=== PATIENT | female | born 1975 | race Two or more races ===

== ENCOUNTER 2024-01-09 17:04 | Emergency (ER) | payer OTHER ==
[2024-01-09 17:39] VITALS: BP 104/75; PULSE 65; RESP 16; TEMP 97.5; BMI 22.4
[2024-01-09] MEDS ORDERED: ACETAMINOPHEN INJECTION 100 ML IVPB ONE (18:18)
[2024-01-09 18:29] LABS: HEMATOCRIT 40.7 % (32.4-45.2); HEMOGLOBIN 13.5 G/dL (10.7-15.3); MCH 31.5 pg (25.7-33.7); MCHC 33.2 g/dl (32.0-36.0); MEAN CELL VOLUME 94.8 fl (80-96); MEAN PLT VOLUME 8.9 fl (7.5-11.1); PLATELET COUNT 199.9 10^3/uL (134-434); RBC 4.29 10^6/uL (3.60-5.2); RDW 14.5 % (11.6-15.6); WHITE BLOOD COUNT 4.8 10^3/uL (4.0-10.8)
[2024-01-09] MEDS: ACETAMINOPHEN 1000 MG/100 ML BAG IVPB ONE (18:32)
[2024-01-09] MEDS: SODIUM CHLORIDE 0.9% 1000 ML INFUS.BAG IV ONE (18:32)
[2024-01-09 18:43] LABS: ALBUMIN 4.8 g/dl (3.4-5.0); BILIRUBIN,TOTAL 0.4 mg/dl (0.2-1); CALCIUM 9.8 mg/dl (8.5-10.1); CREATININE 0.8 mg/dl (0.6-1.3)
[2024-01-09 18:47] LABS: POTASSIUM 4.7 mmol/L (3.5-5.1)
[2024-01-09] MEDS ORDERED: cefTRIAXone SODIUM 1 GM VIAL ONE (19:15)
[2024-01-09] MEDS: CEFTRIAXONE 1 GM in DEXTROSE 5%-WATER - 100 ML IVPB ONE (19:22)
[2024-01-09] MEDS ORDERED: KETOROLAC TROMETHAMINE 30 MG/1 ML VIAL ONE (19:27)
[2024-01-09] MEDS: KETOROLAC TROMETHAMINE 30 MG/1 ML VIAL IVPUSH ONE (19:32)
[2024-01-09] MEDS ORDERED: LIDOCAINE 5% TOPICAL PATCH ONE (19:45)
[2024-01-09] MEDS: LIDOCAINE 5% TOPICAL PATCH TP ONE (19:55)
[2024-01-09] MEDS: CYCLOBENZAPRINE HCL 5 MG TABLET PO STA (20:43)
[2024-01-09] MEDS ORDERED: CYCLOBENZAPRINE HCL 5 MG TABLET ONE (20:43)
[2024-01-09] MEDS ORDERED: LIDOCAINE PATCH REMOVAL MC SCH (22:00)
== END 2024-01-09 20:57 | disposition home or self-care (01) ==
LOC: FER 17:04
PROC: 3E03329 Introduction of Other Anti-infective into Peripheral Vein, Percutaneous Approach (ICD-10-PCS; principal; 2024-01-09)
PROC: 3E033NZ Introduction of Analgesics, Hypnotics, Sedatives into Peripheral Vein, Percutaneous Approach (ICD-10-PCS; 2024-01-09)
PROC: 3E0333Z Introduction of Anti-inflammatory into Peripheral Vein, Percutaneous Approach (ICD-10-PCS; 2024-01-09)
DX: M54.50 Low back pain, unspecified (principal); R10.12 Left upper quadrant pain; R10.32 Left lower quadrant pain
CPT/HCPCS: 36415; 74176-TC; 80053; 81003; 81015; 84703; 85027; 87086; 87186; 99284-25; J0131